=== PATIENT | female | born 1995 | race African-American/Black ===

== ENCOUNTER 2024-03-12 14:30 | Emergency (ER) | payer SELFPAY ==
[~2024-03-12] VITALS: Ht 154.9 cm; Wt 56.7 kg
[2024-03-12 14:33] VITALS: O2SAT 100
[2024-03-12 15:44] VITALS: BP 107/63; PULSE 89; RESP 18; TEMP 36.8; O2SAT 100
== END 2024-03-12 15:45 | disposition home or self-care (01) ==
LOC: ER 14:30
DX: S01.81XD Laceration without foreign body of other part of head, subsequent encounter (principal); J45.909 Unspecified asthma, uncomplicated; X58.XXXD Exposure to other specified factors, subsequent encounter
CPT/HCPCS: 99281